=== PATIENT | female | born 1945 | race Two or more races ===

== ENCOUNTER 2019-06-16 07:23 | Outpatient (CLI) | payer OTHER ==
[2019-06-19] MEDS ORDERED: METFORMIN HCL500 M3 PO (16:41)
[2019-06-19] MEDS ORDERED: SYNTHROID50 MCG PO (16:41)
[2019-06-19] MEDS ORDERED: IRBESARTAN150 MG PO (16:42)
== END 2019-06-16 07:43 | disposition home or self-care (01) ==
LOC: LAB 07:23
DX: D68.8 Other specified coagulation defects (principal); E78.2 Mixed hyperlipidemia; N39.0 Urinary tract infection, site not specified; E07.89 Other specified disorders of thyroid; Z01.818 Encounter for other preprocedural examination; I10 Essential (primary) hypertension

== ENCOUNTER 2019-06-20 05:30 | Day surgery (SDC) | payer OTHER ==
[~2019-06-20] VITALS: Ht 147.3 cm; Wt 59.9 kg
[~2019-06-20 05:30] MED LIST: IRBESARTAN150 MG PO; METFORMIN HCL500 M3 PO; SYNTHROID50 MCG PO
[2019-06-20] MEDS ORDERED: RELAFEN DS1000 MG PO (13:10)
[2019-06-20] MEDS ORDERED: PERCOCET 5-3251 EACH PO (13:10)
== END 2019-06-20 17:30 | disposition home or self-care (01) ==
LOC: CIR.AMB 05:30 → SURG 07:15 → CIR.AMB 07:15 → EDSTATUS 07:15 → CIR.AMB 17:30
DX: M75.121 Complete rotator cuff tear or rupture of right shoulder, not specified as traumatic (principal); M75.41 Impingement syndrome of right shoulder; M19.011 Primary osteoarthritis, right shoulder